=== PATIENT | female | born 1990 | race Caucasian/White ===

== ENCOUNTER → 2017-02-21 | Outpatient (CLI) | payer OTHER ==
[~2017-02-21] MED LIST: FERR1TAB61 PO; MTR600X PO; OXYC-57 PO; SENNTAB23 PO
[2017-02-21 09:49] LABS: HEMATOCRIT 28.8 % (37-47)
[2017-02-21 10:17] LABS: GTGD 50 Grams
== END | disposition home or self-care (01) ==
LOC: C.LAB1850 08:48
PROVIDERS: ATTEND Obstetrics & Gynecology
DX: Z34.03 Encounter for supervision of normal first pregnancy, third trimester (principal)

== ENCOUNTER → 2017-02-21 | Outpatient (CLI) | payer OTHER ==
[2017-02-21 18:16] LABS: URINE APPEARANCE CLEAR (CLEAR); URINE BILIRUBIN NEG (NEG); URINE COLOR YELLOW; URINE EPITHELIAL CELL AUTO >30 /lpf (0-5); URINE NITRITE NEG (NEG); URINE SPECIFIC GRAVITY 1.013 (1.000-1.030); UROBILINOGEN NEG (NEG)
[2017-02-21 18:18] LABS: MANUAL MICROSCOPIC REQUIRED? NO; REVIEW REQ? NO
== END | disposition home or self-care (01) ==
LOC: C.LABSPEC 17:46
PROVIDERS: ATTEND Obstetrics & Gynecology
DX: Z34.03 Encounter for supervision of normal first pregnancy, third trimester (principal)

== ENCOUNTER → 2017-04-13 | Outpatient (CLI) | payer OTHER | END | disposition home or self-care (01) | LOC: C.LABSPEC 17:55 | PROVIDERS: ATTEND Obstetrics & Gynecology | DX: Z34.03 Encounter for supervision of normal first pregnancy, third trimester (principal) ==

== ENCOUNTER → 2017-04-14 | Outpatient (CLI) | payer OTHER ==
[2017-04-14 16:19] LABS: PATIENT HEIGHT 170.2 cm
[2017-04-14 17:45] LABS: URINE TOTAL PROTEIN 7.8 mg/dl (0-11.9)
[2017-04-14 19:01] LABS: CREATININE 0.54 mg/dl (0.6-1.2); URINE TOTAL PROTEIN CALC 210.6 mg/24 hr (0-149.1)
== END | disposition home or self-care (01) ==
LOC: C.LAB1850 15:55
PROVIDERS: ATTEND Obstetrics & Gynecology
DX: O12.13 Gestational proteinuria, third trimester (principal); Z3A.00 Weeks of gestation of pregnancy not specified

== ENCOUNTER 2017-05-05 05:43 | Inpatient (IN) | payer OTHER ==
--- NOTE | 2017-05-04 11:24 | HISTORY & PHYSICAL EXAMINATION ---
DATE OF ADMISSION: 05/05/2017 She is scheduled for on 05/05/2017. HISTORY OF PRESENT ILLNESS: Lo is . This has been an uncomplicated . She has been mildly anemic with a hemoglobin of 9.8 in the early third trimester. Her testing has been normal. It should be noted she had gestational proteinuria in the third trimester, but count was less than 300 mg in 24 hours. MEDICATIONS: Occasional Ventolin puffer, iron supplement, prenatals. DRUG ALLERGIES: None. PAST HISTORY: This is her first . PAST MEDICAL HISTORY: She has a history of ADHD, adjustment disorder. Past history of mild cervical dysplasia. PAST SURGICAL HISTORY: No major surgeries. SOCIAL HISTORY: Nonsmoker, nondrinker. FAMILY HISTORY: Noncontributory. REVIEW OF SYSTEMS: Negative. PHYSICAL EXAMINATION: VITAL SIGNS: Stable. She is afebrile. Her weight is 178. CHEST EXAMINATION: Clear. CARDIOVASCULAR EXAMINATION: Normal rate and rhythm. No audible murmur. ABDOMINAL EXAMINATION: Gravid. Fundal height 39 cm. heart rate tones 140. IMPRESSION AND PLAN: Lo is wishing a primary section. Throughout the it has been discussed with her that we recommend vaginal delivery in vertex presentations in first babies. She wishes to have , she is worried about the size of the baby and says her preference is to have a . She understands that vaginal delivery is the usual recommended course, but she is choosing a section as the choice for herself. I reviewed the risks of including but not limited to the risks of bleeding, infection, injury to bowel, bladder, ureter, vessels, deep vein thrombosis, pulmonary embolus, hernia. Discussed the risks in comparison to vaginal delivery. After full informed consent, the patient wishes to have a primary elective section at 39 weeks and 1 day. Her due date is 05/11/2017. We will make arrangements for this.
[2017-05-04 13:14] VITALS: BMI 28.0
--- NOTE | 2017-05-04 13:37 | PAT Medication Instructions ---
Service Date May 04, 2017. Current Home Medication List Ferrous Sulfate (Iron), 65 MG PO QAM Sennosides-Docusate Sodium (Stool Softener), 1 TAB PO QAM Medication Instructions For Your Scheduled Surgery - Hold the following medications the morning of surgery: Ferrous Sulfate (Iron), 65 MG PO QAM Sennosides-Docusate Sodium (Stool Softener), 1 TAB PO QAM nothing to eat or drink after midnight If you have any questions please call us at [phone] or [phone] or [phone]
[2017-05-04 14:48] LABS: BASO % 0.1 %; BASO ABS # 0.01 K/uL (0-0.2); COMPLETE YES; EOS % 0.5 %; HEMATOCRIT 30.3 % (37-47); IG% 0.2 %; LYMPH % 16.3 %; LYMPH ABS # 1.35 K/uL (1.2-3.4); MEAN CELL VOLUME 89.1 fL (80-100); MEAN CORPUSCULAR HEMOGLOBIN 29.7 pg (25-34); MEAN CORPUSCULAR HGB CONC 33.3 g/dl (32-36); MEAN PLATELET VOLUME 11.7 fL (7.4-10.4); MONO % 7.6 %; NEUT % 75.3 %; PLATELET COUNT 187 K/uL (130-400); WHITE BLOOD COUNT 8.29 K/uL (4.8-10.8)
[2017-05-04 16:03] LABS: BUN/CREATININE RATIO 12.7 (10-20); CALCIUM 8.6 mg/dl (8.5-10.1); CREATININE 0.62 mg/dl (0.60-1.20); POTASSIUM 3.6 mmol/L (3.5-5.1)
[~2017-05-05] VITALS: Ht 170.2 cm; Wt 83.1 kg
[2017-05-05] VITALS (12 sets, daily range): BP systolic 104–124; BP diastolic 63–82; PULSE 54–71; TEMP 36.4–36.9; O2SAT 99–100; Ht 170.2 cm; Wt 83.1 kg
[~2017-05-05 05:43] MED LIST changes: -MTR600X PO; -OXYC-57 PO
[2017-05-05] MEDS ORDERED: CEFAZOLIN SOD 2000 MG in DEXTROSE 5% 50ML IV SCH (06:00)
[2017-05-05] MEDS ORDERED: CITRIC ACID/SODIUM CITRATE 15 ML UDC PO ONE (06:30)
[2017-05-05 06:35] LABS: BASO % 0.1 %; BASO ABS # 0.01 K/uL (0-0.2); EOS % 0.5 %; HEMATOCRIT 31.3 % (37-47); IG% 0.5 %; LYMPH % 19.8 %; LYMPH ABS # 1.55 K/uL (1.2-3.4); MEAN CELL VOLUME 88.9 fL (80-100); MEAN PLATELET VOLUME 11.3 fL (7.4-10.4); NEUT % 68.1 %; PLATELET COUNT 192 K/uL (130-400); RED BLOOD COUNT 3.52 M/uL (4.2-5.4); WHITE BLOOD COUNT 7.81 K/uL (4.8-10.8)
[2017-05-05] MEDS: LACTATED RINGER'S 1000ML 1,000 ML IV SCH ×2 (06:41→07:08)
[2017-05-05 06:45] LABS: COMPLETE YES; MEAN CORPUSCULAR HGB CONC 32.6 g/dl (32-36)
--- NOTE | 2017-05-05 07:05 | History & Physical Bridge Note ---
H&P Re-Evaluation Bridge Note: I have examined the patient, reviewed the History & Physical and in the interval since the performance of the History & Physical I have noted the following changes of clinical significance: No changes noted Still wishes to proceed with primary elective C/S. TIMMY
[2017-05-05] MEDS ORDERED: MoRPHine SULFATE PF 1 MG/ML 10 ML AMP/VIAL ONE (07:06)
[2017-05-05] MEDS ORDERED: METOCLOPRAMIDE HCL INJ 5 MG/ML 2 ML VIAL ONE (08:24)
[2017-05-05] MEDS ORDERED: OXYTOCIN INJ 10 UNITS/ML VIAL ONE (08:24)
[2017-05-05] MEDS ORDERED: EpHEDrine SULFATE INJ 50 MG/ML AMP ONE (08:24)
[2017-05-05] MEDS ORDERED: ONDANSETRON INJ 2 MG/ML 2 ML VIAL ONE (08:24)
[2017-05-05] MEDS ORDERED: MAGNESIUM HYDROXIDE SUSP 30 ML UDC PO PRN (08:30)
[2017-05-05] MEDS ORDERED: LACTATED RINGER'S 1000ML 500 ML IV PRN (08:39)
[2017-05-05] MEDS ORDERED: NALOXONE HCL INJ 1 MG in SODIUM CHLORIDE 0.9% 1000ML 1,000 ML IV PRN ×4 (08:39)
[2017-05-05] MEDS ORDERED: SODIUM CHLORIDE 0.9% 1000ML 1,000 ML IV PRN (08:39)
[2017-05-05] MEDS ORDERED: NALOXONE HCL INJ 0.08 MG in SYRINGE 1.8 ML IV PRN (08:39)
--- NOTE | 2017-05-05 08:40 | [facility] Post Operative Brief Note ---
Immediate Operative Summary Operative Date May 05, 2017. Pre-Operative Diagnosis 39 WEEKS GESTATION FOR ELECTIVE PRIMARY CAESAREAN SECTION Post-Operative Diagnosis SAME Procedure(s) Performed PRIMARY CAESAREAN SECTION DELIVERY FOR LIVE FEMALE INFANT AT [address] Hauser Information Technology Coordinator Surgeon(s) Dr. Rubio Estimated Blood Loss 600 EBL Findings Normal pelvic anatomy Specimens PLACENTA CORD BLOOD PORTION OF CORD FOR ARTERIAL AND VENOUS CORD BLOOD GASES ARTERIAL AND VENOUS CORD BLOOD GASES Drains Damon Anesthesia Spinal Complication(s) None Disposition L&D
[2017-05-05] MEDS ORDERED: KETOROLAC TROMETHAMINE 30 MG/ML VIAL IV. PRN (08:45)
[2017-05-05] MEDS ORDERED: PROMETHAZINE HCL INJ 12.5 MG in SODIUM CHLORIDE 0.9% 50ML 50 ML IV PRN (08:45)
[2017-05-05] MEDS ORDERED: ATROPINE SULFATE 0.1 MG/ML 5ML SYR IV PRN (08:45)
[2017-05-05] MEDS ORDERED: MEPERIDINE HCL 25 MG/ML CARP IV PRN ×2 (08:45)
[2017-05-05] MEDS ORDERED: NALOXONE HCL 0.4 MG/1 ML VIAL/CARP IV PRN (08:45)
[2017-05-05] MEDS ORDERED: DiphenhydrAMINE HCL 50 MG/ML VIAL IV PRN (08:45)
[2017-05-05] MEDS ORDERED: MoRPHine SULFATE PF 1 MG/ML 10 ML AMP/VIAL EPI PRN (08:45)
[2017-05-05] MEDS ORDERED: NALBUPHINE HCL INJ 10 MG/ML AMP IV PRN (08:45)
[2017-05-05] MEDS ORDERED: NO NARCOTICS OR SEDATIVES SCH (08:45)
[2017-05-05] MEDS ORDERED: PHENYLEPHRINE 100MCG/ML 5ML SYR IV PRN (08:45)
[2017-05-05] MEDS ORDERED: ONDANSETRON INJ 2 MG/ML 2 ML VIAL IV PRN ×2 (08:45)
[2017-05-05] MEDS ORDERED: EpHEDrine SULFATE INJ 50 MG/ML AMP IV PRN ×2 (08:45)
[2017-05-05] MEDS ORDERED: PROMETHAZINE HCL INJ 6.25 MG in SODIUM CHLORIDE 0.9% 50ML 50 ML IV PRN (08:45)
--- NOTE | 2017-05-05 09:22 | OPERATIVE REPORT ---
DATE OF OPERATION: 05/05/2017 PREOPERATIVE DIAGNOSIS: 39 weeks gestation for elective primary section. POSTOPERATIVE DIAGNOSIS: Same. PROCEDURE: Primary section, low transverse. SURGEON: Dr. Hauser. SENIOR ACCOUNTING ASSOCIATE: Carson Marrero PA-C. ESTIMATED BLOOD LOSS: 600 mL. FINDINGS: Normal pelvic anatomy. SPECIMENS: Placenta and cord blood. DRAINS: Damon catheter. ANESTHETIC: Spinal. COMPLICATIONS: None. DISPOSITION: Labor and delivery. Lo was given a spinal anesthetic. Damon catheter placed by nursing. Prepped and draped in supine position with a leftward tilt. Skin incision was tested with pickups with teeth and found to be adequate. Time-out performed and 2 grams Ancef given preoperatively. Scalpel was used to make a Pfannenstiel incision in the skin cutting down to subcutaneous fat and into the fascia. Fascia was then cut laterally with curved Mayos and then released from the rectus muscles superiorly and inferiorly with curved Mayos. Rectus muscle split. Peritoneal cavity entered in a superior location and then opening expanded to allow exposure. Bladder retractor placed. Bladder flap developed with Metzenbaums and then bladder retractor repositioned. Scalpel used to make a low transverse incision on the uterus. Entry into the uterus was actually performed mainly with the finger and then opening extended with the stamping machine operator's fingers in the usual fashion. Fluid was clear. Baby in vertex position. Baby was delivered by gentle flexion of the head and then pressure on the abdomen without difficulty. Mouth and then nares were suctioned at delivery of the head and then gentle traction used to deliver the baby. No nuchal cord. Live vigorous female . Cord clamped and cut. Cord gases obtained. Cord blood obtained. Baby handed to pediatrics, Dr. Chiu in attendance. Placenta was removed. Uterus was exteriorized and then we used a moist lap to ensure all placental material was removed. Pitocin started by anesthesia. Uterus tone improved and hemostasis improved. Uterus closed in the usual fashion, running 0 Monocryl locked and second reinforcing 0 Monocryl nonlocked. At this stage, hemostasis was excellent. After generous irrigation and suction of the cul-de-sac and bladder flap regions, uterus was placed back in the peritoneal cavity. On inspection, hemostasis was excellent. Hemostasis was checked in the subfascial area as well was excellent. Rectus muscles reapproximated with 0 Monocryl. Fascia closed with 0 Vicryl. Subcutaneous fat irrigated and closed with 2-0 Vicryl and skin closed with 4-0 subcuticular Monocryl and Steri-Strips. Sponge and instruments counts correct and urine was clear at the end of procedure. I attest to the content of the Intraoperative Record and any orders documented therein. Any exception s are noted below.
[2017-05-05] MEDS: KETOROLAC TROMETHAMINE 30 MG/ML VIAL IV. PRN ×2 (10:45→23:32)
[2017-05-05] MEDS: SIMETHICONE 80 MG CHEW PO SCH ×4 (10:47→21:02)
[2017-05-05] MEDS ORDERED: LACTATED RINGER'S 1000ML 1,000 ML IV SCH (11:13)
[2017-05-05] MEDS: OXYTOCIN INJ 20 UNITS in LACTATED RINGER'S 1000ML 1,000 ML IV SCH ×2 (11:40→21:01)
--- NOTE | 2017-05-05 15:09 | Anesthesiology Progress Note ---
Anesthesia Post Op Note Date & Time May 05, 2017 at 15:09 Vital Signs Pain Intensity: 2.0 Vital Signs Past 12 Hours Date Time Temp Pulse Resp B/P (MAP) Pulse Ox O2 Delivery O2 Flow Rate FiO2 05/05/17 15:00 20 100 05/05/17 14:00 20 100 05/05/17 14:00 100 Room Air 05/05/17 14:00 36.4 54 20 121/77 (92) 100 Room Air 05/05/17 14:00 100 Room Air Notes Mental Status: alert / awake / arousable, participated in evaluation Pt Amnestic to Procedure: Yes Nausea / Vomiting: adequately controlled Pain: adequately controlled Airway Patency, RR, SpO2: stable & adequate BP & HR: stable & adequate Hydration State: stable & adequate Anesthetic Complications: no major complications apparent
[2017-05-05] MEDS: DOCUSATE SODIUM 100 MG CAP PO SCH (21:02)
[2017-05-06] MEDS ORDERED: DC INTRASPINAL MORPHINE SCH
[2017-05-06] MEDS ORDERED: PROMETHAZINE HCL INJ 25 MG in SODIUM CHLORIDE 0.9% 50ML 50 ML IV PRN (00:01)
[2017-05-06] MEDS ORDERED: DiphenhydrAMINE HCL 50 MG/ML VIAL IV PRN (00:01)
[2017-05-06] MEDS ORDERED: OXYCODONE/ACETAMINOPHEN 5-325 TAB PO PRN (00:01)
[2017-05-06] MEDS ORDERED: KETOROLAC TROMETHAMINE 30 MG/ML VIAL IV. PRN (00:01)
[2017-05-06] MEDS ORDERED: ONDANSETRON INJ 2 MG/ML 2 ML VIAL IV PRN (00:01)
[2017-05-06 04:10] VITALS: BP 114/80; PULSE 96; TEMP 36.8; O2SAT 99
[2017-05-06 06:32] LABS: BASO % 0.1 %; BASO ABS # 0.01 K/uL (0-0.2); EOS % 0.7 %; HEMATOCRIT 27.3 % (37-47); IG% 0.4 %; LYMPH % 12.7 %; LYMPH ABS # 0.89 K/uL (1.2-3.4); MEAN CELL VOLUME 89.8 fL (80-100); MEAN CORPUSCULAR HEMOGLOBIN 29.3 pg (25-34); MEAN CORPUSCULAR HGB CONC 32.6 g/dl (32-36); MONO % 7.4 %; NEUT % 78.7 %; PLATELET COUNT 139 K/uL (130-400); RED BLOOD COUNT 3.04 M/uL (4.2-5.4); WHITE BLOOD COUNT 7.01 K/uL (4.8-10.8)
[2017-05-06 07:03] LABS: COMPLETE YES
--- NOTE | 2017-05-06 07:15 | Progress Note ---
Subjective May 06, 2017. Subjective conversation w/ patient, physical exam Ambulation: ambulating normally Voiding: no voiding problems Passing Gas: No Diet Tolerance: Clear Liquids Lochia: Small Feeding Type: Breast Feeding Pain: sore when got up to urinate Objective Vital Signs Date Time Temp Pulse Resp B/P (MAP) Pulse Ox O2 Delivery O2 Flow Rate FiO2 05/06/17 04:10 36.8 96 18 114/80 (91) 99 Room Air 05/05/17 23:45 36.9 60 18 104/63 (77) 99 Room Air 05/05/17 23:45 18 99 05/05/17 23:45 99 Room Air 05/05/17 22:00 16 99 05/05/17 21:00 16 99 05/05/17 20:00 36.8 71 16 124/82 (96) 99 Room Air 05/05/17 20:00 16 99 05/05/17 19:00 16 99 05/05/17 18:00 16 100 05/05/17 17:00 16 100 05/05/17 16:00 20 100 05/05/17 15:52 36.4 59 20 113/76 (88) 100 Room Air 05/05/17 15:30 20 100 05/05/17 15:30 100 Room Air 05/05/17 15:00 20 100 05/05/17 14:00 20 100 05/05/17 14:00 100 Room Air 05/05/17 14:00 36.4 54 20 121/77 (92) 100 Room Air 05/05/17 14:00 100 Room Air Physical Exam General Appearance: WELL-APPEARING, WD/WN, NO APPARENT DISTRESS Respiratory/Chest: lungs clear Cardiovascular: regular rate, rhythm Abdomen: non tender, soft Fundus: Firm, Relation to Umbilicus (at u) Incision Description: Clean, Dry & Intact Extremities: non-tender Laboratory Results Last 24 Hours Test 05/06/17 06:06 White Blood Count 7.01 K/uL Red Blood Count 3.04 M/uL Hemoglobin 8.9 g/dL Hematocrit 27.3 % Mean Corpuscular Volume 89.8 fL Mean Corpuscular Hemoglobin 29.3 pg Mean Corpuscular Hemoglobin Concent 32.6 g/dl Platelet Count 139 K/uL Mean Platelet Volume 11.0 fL Neutrophils (%) (Auto) 78.7 % Lymphocytes (%) (Auto) 12.7 % Monocytes (%) (Auto) 7.4 % Eosinophils (%) (Auto) 0.7 % Basophils (%) (Auto) 0.1 % Neutrophils # (Auto) 5.51 K/uL Lymphocytes # (Auto) 0.89 K/uL Monocytes # (Auto) 0.52 K/uL Eosinophils # (Auto) 0.05 K/uL Basophils # (Auto) 0.01 K/uL RDW Standard Deviation 46.9 fL RDW Coefficient of Variation 14.3 % Immature Granulocyte % (Auto) 0.4 % Immature Granulocyte # (Auto) 0.03 K/uL Assessment and Plan Post-Op Day#: 1 Continue Routine Care: stable, routine care. adv diet to crackers, use po pain meds and walking to see if can pass gas. +bs. no distention. voided x 1.
[2017-05-06 07:29] VITALS: BP 111/75; PULSE 66; TEMP 36.9; O2SAT 99
[2017-05-06] MEDS: SIMETHICONE 80 MG CHEW PO SCH ×4 (08:02→19:36)
[2017-05-06] MEDS: DOCUSATE SODIUM 100 MG CAP PO SCH ×2 (08:02→19:36)
[2017-05-06 11:25] VITALS: BP 111/74; PULSE 79; TEMP 37
[2017-05-06] MEDS: IBUPROFEN 600 MG TAB PO PRN ×3 (11:57→20:14)
[2017-05-06 16:45] VITALS: BP 122/84; PULSE 90; TEMP 37
[2017-05-06] MEDS: OXYCODONE/ACETAMINOPHEN 5-325 TAB PO PRN (20:57)
[2017-05-06] MEDS ORDERED: BISACODYL 5 MG TABEC PO ONE (22:00)
[2017-05-06 23:40] VITALS: BP 106/72; PULSE 68; TEMP 36.8; O2SAT 99
[2017-05-07] MEDS: IBUPROFEN 600 MG TAB PO PRN ×4 (05:35→20:03)
[2017-05-07 06:23] LABS: HEMATOCRIT 27.8 % (37-47)
[2017-05-07] MEDS ORDERED: BISACODYL 10 MG SUPP PR PRN (07:00)
[2017-05-07] MEDS: DOCUSATE SODIUM 100 MG CAP PO SCH ×2 (08:07→20:05)
[2017-05-07] MEDS: SIMETHICONE 80 MG CHEW PO SCH ×4 (08:07→20:05)
--- NOTE | 2017-05-07 08:26 | Progress Note ---
Subjective May 07, 2017. Subjective conversation w/ patient, chart review, review of studies Ambulation: ambulating normally Voiding: no voiding problems Diet Tolerance: Regular Diet Lochia: Moderate Feeding Type: Breast Feeding Objective Vital Signs Date Time Temp Pulse Resp B/P (MAP) Pulse Ox O2 Delivery O2 Flow Rate FiO2 05/06/17 23:40 36.8 68 18 106/72 (83) 99 Room Air 05/06/17 23:40 99 Room Air 05/06/17 16:45 Room Air 05/06/17 16:45 37.0 90 20 122/84 (97) Room Air 05/06/17 11:25 37.0 79 16 111/74 (86) Room Air Physical Exam General Appearance: WELL-APPEARING Abdomen: normal bowel sounds, non tender Fundus: Firm Extremities: no calf tenderness Laboratory Results Last 24 Hours Test 05/07/17 06:05 Hemoglobin 9.1 g/dL Hematocrit 27.8 % Assessment and Plan Post-Op Day#: 2 Continue Routine Care: KINGS WARNER
[2017-05-07 08:30] VITALS: BP 110/63; PULSE 75; TEMP 36.8
[2017-05-07] MEDS: OXYCODONE/ACETAMINOPHEN 5-325 TAB PO PRN ×3 (09:12→20:04)
[2017-05-07 15:00] VITALS: BP 109/56; PULSE 118; TEMP 36.7
[2017-05-07 23:25] VITALS: BP 115/73; PULSE 59; TEMP 36.8; O2SAT 99
[2017-05-08] MEDS ORDERED: MTR600X PO (06:01)
[2017-05-08] MEDS ORDERED: OXYC-57 PO (06:01)
--- NOTE | 2017-05-08 06:02 | Discharge Instructions ---
Discharge Instructions Date of Service May 08, 2017. Admission Reason for Admission: [id number] For Delivery W/O Indication Discharge Discharge Diagnosis / Problem: C/S Discharge Goals Goal(s): Routine recovery after Activity Recommendations Activity Limitations: per Instructions/Follow-up section . Instructions / Follow-Up Instructions / Follow-Up ACTIVITY RECOMMENDATIONS: * Gradual return to full activity over the next 2-3 weeks. * No lifting - nothing heavier than baby over the next 2-3 weeks. * Do not engage in vigorous exercise, sexual activity or sports until cleared by your physician. * Do not drive or operate any motorized equipment until cleared by your physician. * You may shower/bathe daily. MEDICATIONS: For discomfort or pain, you may use Acetaminophen (Tylenol), Ibuprofen (Advil), or Naproxen (Aleve) following the package directions. For constipation you may use Colace following the package directions. BREAST CARE: If you are not breast feeding: * Wear a supportive bra 24 hours a day for one to two weeks. * Avoid stimulating your breasts and nipples as much as possible during the first few weeks after delivery. * When taking a shower, have the warm water hit your back, not breasts. * When your breasts feel full, apply ice packs. Usually three to four times a day helps ease the discomfort. * Take a mild pain medication (Tylenol / Motrin) when you are uncomfortable. If breast feeding: * Use breast milk to lubricate nipples. Lansinoh cream may be used for sore nipples. You do not need to remove cream prior to breast feeding. If using a different brand of cream, check the label for directions regarding removal of cream prior to nursing. * Wear a supportive bra. * If having problems with breasts or breast feeding, call a sr solutions consultant or your health care provider. SPECIAL CARE INSTRUCTIONS: When you are discharged from the hospital, it is important for you to follow the instructions listed below: * During the first week at home, you should be able to care for yourself and your baby. In addition, the usual light household activities are encouraged. * Limit your activities to the way you feel. Do not try to clean the house or move furniture. Be sensible. * If you actively engage in sports and have done so up until the time of your delivery, you may resume these activities as soon as you feel able. This may take up to one month or even longer. Use good judgment. * Continue to take your vitamins for at least six weeks after the of your baby. * Your diet need not be limited unless you were on a special diet before your delivery. Breast-feeding mothers need around 2500 calories per day and at least 64-80 ounces of fluid per day (8 to 10 glasses). * You should eat foods from the four major food groups. Crash diets or fad diets are to be avoided. Eating lean meats, fresh fruits and vegetables, low-fat dairy products, high fiber foods and a regular exercise program, will help you get back to your pre- weight without putting your health at risk. * Constipation is sometimes a problem after delivery. Take a mild laxative as needed. If breast feeding, Milk of Magnesia is acceptable to use. You may use a suppository or Fleets enema. * A daily shower or tub bath is suggested. Wash incision daily with warm soapy water and pat dry. It doesn't need to be covered unless drainage is present. * A bloody vaginal discharge will usually continue until around four weeks . A small amount of bleeding may continue for as long as six weeks. Vaginal discharge changes from the bright red bleeding after delivery to pink then brownish and finally yellowish-pink before becoming white and disappearing. * Bleeding may increase with activity. Your first period may come in 4-8 weeks. If you are breast feeding, your period may be delayed even longer. * [place] (sex) can begin whenever both you and your partner feel comfortable and do not have any form of genital infection. It is recommended that you wait at least six weeks for internal and external healing to occur. If you have questions, please talk to your health care practitioner. A condom should be used to prevent infection and . * Foreplay, gentle intercourse and lubrication is very important the first several times to prevent pain. A water-based lubricant such as K-Y jelly or Astroglide may be used. * If you have RH negative blood and your baby is RH positive, you will receive RHOGAM by injection prior to discharge. The nurse will give you a card to keep with you that has the date and place that you received RHOGAM after delivery. * During your care, you had a Rubella screen done to check for the presence of rubella antibodies in your blood. If your test was negative, you will receive a Rubella vaccine prior to discharge. This vaccine may cause a fever, soreness at the injection site and flu-like symptoms. If these symptoms persist, notify your health care practitioner. is not advised for one month after a Rubella vaccine. * Verbalizes understanding of car seat law as reviewed with patient nursing. * Car Seat hand-out given and reviewed with patient by nursing. * Shaken baby information reviewed with patient by nursing. Call you doctor if: * Heavy bleeding (saturating several pads an hour) or passing clots the size of your fist. * A fever >101 degrees F (38.3 degrees C) on two occasions four hours apart and /or chills. * Unusual pain in the pelvic or vaginal areas. * Call the doctor for any increased redness, drainage or swelling around the incision and any pain unrelieved by prescribed pain medication. * "Baby Blues" lasting longer than two weeks. If you have any questions or concerns, call your health care practitioner at . FOLLOW UP VISIT: * Please call the office at to schedule a 6 week examination. It is important you keep this appointment. It is important for you to make arrangements for either yearly or twice yearly check-ups thereafter. Current Hospital Diet Patient's current hospital diet: Regular Diet Discharge Diet Recommended Diet: Regular OB Diet Procedures Procedures Performed: PRIMARY CAESAREAN SECTION DELIVERY FOR LIVE FEMALE INFANT AT 0757 Pending Studies Studies pending at discharge: no Medical Emergencies . Who to Call and When: Medical Emergencies: If at any time you feel your situation is an emergency, please call [phone] immediately. . Non-Emergent Contact Non-Emergency issues call your: [facility] . . "Provider Documentation" section prepared by Ranulfo Hauser. . VTE Core Measure Inpt VTE Proph given/why not?: Ethan Newell, SCD's
--- NOTE | 2017-05-08 06:23 | Progress Note ---
Subjective May 08, 2017. Subjective conversation w/ patient, physical exam, chart review, lab review Ambulation: ambulating normally Voiding: no voiding problems Diet Tolerance: Regular Diet Lochia: Small Feeding Type: Breast Feeding Objective Vital Signs Date Time Temp Pulse Resp B/P (MAP) Pulse Ox O2 Delivery O2 Flow Rate FiO2 05/07/17 23:25 Room Air 05/07/17 23:25 36.8 59 18 115/73 (87) 99 Room Air 05/07/17 15:00 Room Air 05/07/17 15:00 36.7 118 20 109/56 (73) Room Air 05/07/17 08:30 36.8 75 20 110/63 (79) Physical Exam General Appearance: WELL-APPEARING Abdomen: non tender Fundus: Firm Incision Description: Clean, Dry & Intact Extremities: no calf tenderness Assessment and Plan Post-Op Day#: 3 Continue Routine Care: home
[2017-05-08] MEDS: IBUPROFEN 600 MG TAB PO PRN ×2 (06:42→10:52)
[2017-05-08] MEDS: OXYCODONE/ACETAMINOPHEN 5-325 TAB PO PRN ×2 (06:43→10:53)
[2017-05-08 07:26] VITALS: BP 116/78; PULSE 65; TEMP 37; O2SAT 99
[2017-05-08] MEDS: SIMETHICONE 80 MG CHEW PO SCH ×2 (09:30→10:53)
[2017-05-08] MEDS: DOCUSATE SODIUM 100 MG CAP PO SCH (09:30)
--- NOTE | 2017-05-08 10:24 | DISCHARGE SUMMARY ---
Maddy had a section on 05/05/2017. Operative note has been dictated. Course in hospital uncomplicated. By day 3, she met discharge criteria. SUBJECTIVE: The patient was feeling well, ambulating well, tolerating oral diet, passing flatus, minimal bleeding, no extremity pain. PHYSICAL EXAMINATION: VITAL SIGNS: Stable. She is afebrile. ABDOMEN: Benign, soft, nontender. Uterus firm. Incision clean, dry and intact. EXTREMITIES: Negative. IMPRESSION AND PLAN: Postop day 3 from , hemoglobin 9.1 advised iron as an outpatient, Percocet and Motrin and given discharge instructions. Told to follow up in the office.
[2017-05-08 10:30] VITALS: BP_DIAS 78; PULSE 65; TEMP 37
== END 2017-05-08 11:34 | disposition home or self-care (01) | DRG 766 ==
LOC: C.LD 05:43 → EDSTATUS 09:30 → C.OBG 14:02
PROVIDERS: ADMIT Obstetrics & Gynecology; ATTEND Obstetrics & Gynecology
PROC: 10D00Z1 Extraction of Products of Conception, Low, Open Approach (ICD-10-PCS; principal; 2017-05-05 07:30)
DX: O12.14 Gestational proteinuria, complicating childbirth (principal); O99.344 Other mental disorders complicating childbirth; F90.9 Attention-deficit hyperactivity disorder, unspecified type; Z3A.39 39 weeks gestation of pregnancy; Z37.0 Single live birth

== ENCOUNTER 2019-03-22 05:46 | Inpatient (IN) ==
--- NOTE | 2019-03-15 13:46 | History & Physical Report ---
Date of Service March 15, 2019 Assessment & Plan (1) Previous delivery affecting : Planned section and discussed risks including but not limited to the risks of infection injury to bowel bladder ureter deep vein thrombosis pulmonary embolus harm to fetus discussed failure rates of tubal History of Present Illness Repeat C/S and tubal ligation. will be 39 weeks this Monday. Uncomplicated . Does not plan more children and wishes tubal ligation Normal testing, U/S Primary Care Provider: NO PCP Allergies Allergy/AdvReac Type Severity Reaction Status Date / Time No Known Allergies Allergy Verified 03/14/19 11:30 Home Medications Home Medications Medication Instructions Recorded Confirmed Type No Known Home Medications 03/14/19 03/14/19 History Past Med/Surg History Medical History Anxiety Asthma A CHILD (NO INHALER CURRENTLY) Depression GERD (gastroesophageal reflux disease) Restless leg syndrome DURING PREGNANCIES Surgical History History of section X 1 History of myringotomy Nausea and vomiting after administration of anesthetic agent Family History Aunt Family history of diabetes mellitus Grandmother (Paternal) Family hx of colon cancer Social History Preferred Language: [place] Communication Ability: Effective Clinical Project Leader Required: No Beliefs That Will Affect Care: None Current Living Situation: Significant Other Other Information That Helps Us Care for You: No Feels Safe at Home: Yes Safety Concerns: Feels Safe At This Time Smoking Status: Former smoker Do You Dip or Chew Tobacco: No Smoking End Date: 11/2016 Second Hand Exposure: Yes (OCCAS.) Tobacco Cessation Education Requested by Patient: No Hx Alcohol Use: No Hx Substance Use: No Physical Exam Constitutional: WD/WN, vitals as above Respiratory: normal respiratory effort, lungs clear to auscultation Cardiovascular: RRR, no murmur, no edema Genitourinary: OB Exam Abdomen: + fundal height (38), + heart tones (134) and + vertex
--- NOTE | 2019-03-15 14:45 | Anesthesiology Consultation ---
Date of Service March 15, 2019 Assessment & Plan (1) Encounter for pre-operative examination: Chart Review Chart Review: Acceptable Risk for Surgery and Patient seen in Pre Admission Testing Consults Requested none Teaching & Discussion Pre-Anesthesia Teaching/Discussion Notes: Instructed NPO after midnight before surgery, except medications with 15 cc of water. Medication instructions provided according to the PAT guidelines. History Surgery Operation Date: 03/22/19 08:50 Proposed Procedures p Section; - Sofi Hauser MD, FACOG s Post Tubal Ligation - Sofi Hauser MD, FACOG Height/Weight Height: 5 ft 7.5 in Weight: 87.8 kg Allergies Allergy/AdvReac Type Severity Reaction Status Date / Time No Known Allergies Allergy Verified 03/14/19 11:30 Medications Home Medications Medication Instructions Recorded Confirmed Last Taken No Known Home Medications 03/14/19 03/14/19 Unknown Past Medical History Medical History Anxiety Asthma A CHILD (NO INHALER CURRENTLY) Depression GERD (gastroesophageal reflux disease) Restless leg syndrome DURING PREGNANCIES Exercise / Class Metabolic Activity II 4-5 Yardwork/Stairs/Walk up hill (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 Able to climb FOS. Mild SOB with . Normally no SOB or CP. ) Past Family History Family History Aunt Family history of diabetes mellitus Grandmother (Paternal) Family hx of colon cancer Past Surgical History Surgical History History of section X 1 History of myringotomy Past Anesthesia History No Hx of Anesthesia Complications and No Family Hx of Anesthesia Complications History of PONV History of PONV (Does have history of PONV with . ) and Hx of Motion Sickness Social History Smoking Status: Former smoker Smoking cigarettes per day: 1/2 - 1 ppd x 15 years Do You Dip or Chew Tobacco: No Smoking End Date: 11/2016 Hx Alcohol Use: No Hx Substance Use: No substance use type: does not use Review of Systems Patient denies chest pain, shortness of breath, cough, wheezing, palpitations. +Mild SOB with stairs at end of this +Joint Pain (Chronic Back Pain since last ) +Acid reflux (diet controlled) Physical Exam Vital Signs BP: 116/73 P: 80 R: 14 T: 98.3 SPO2: 98% on RA ENMT Thyromental Distance: > or= 3.5 Finger Breadths (3.5) Mallampati Class: I Neck normal visual inspection; neck extension not limited Respiratory normal respiratory effort Auscultation: lungs clear to auscultation bilaterally Cardiovascular Rate/Rhythm: regular rate and regular rhythm Heart Sounds: no murmur Neurologic moves all extremities Psychiatric Orientation: alert and oriented x 3
[~2019-03-22 05:46] MED LIST changes: -FERR1TAB61 PO; +MISSING PHYSICIAN SIGNATURE ON ORDER SCH; -SENNTAB23 PO
--- OUTSIDE RECORDS SUMMARY | 2019-03-22 05:49 | External Medical Summary | Continuity of Care Document ---
:1990 Author Name Babs Strong, Provider Address Unavailable Unavailable , Care Team Providers Name Role Phone Sofi Hauser M.D. Unavailable [email or web address] Unavailable Unavailable Unavailable Unavailable Unavailable Problems Cervicalgia (723.1) (M54.2) Cervical radiculopathy at C8 (723.4) (M54.12) History of Mild cervical dysplasia (622.11) (N87.0) Status: Resolved Asthma (493.90) (J45.909) Adjustment disorder with anxiety (309.24) (F43.22) ADHD (attention deficit hyperactivity disorder), combi yosef type (314.01) (F90.2) Atypical chest pain (786.59) (R07.89) Need for rhogam due to Rh negative mother (V07.2) (Z29.13) Supervision of normal intrauterine pregn alis in multigravida in third trimester (V22.1) (Z34.83) History of (V45.89) (Z98.891) Allergies and Adverse Reactions No Known Drug Allergies (Allergy) Medications No Reported Medications Refills: 0 Procedures History of Colposcopy Cervix With Biopsy(S) With Endocervica l Status: Completed Curettage History of section Status: Comp leted Immunizations Hepatitis B On: 29-May-1998 Hepatitis B On: 02-Jul-1998 Td On: 26-Feb-1999 Hepatitis B On: 13-Jun-1999 HPV (Gardasil) On: 26-May-2008 HPV (Gardasil) On: 02-Oct-2008 Tdap (Adacel) On: 07-Apr-2017 12:07 Lot #: [id number], SANOFI PASTEUR Fluzone Quadrivalent 0.5 ML Intramuscular Suspension P refilled Syringe On: 03-Jan-2019 10:11 Lot #: [id number], SANOFI PASTEUR Family History Father Family history of Meningioma Status: Active Family history of depression (V17.0) (Z81.8) Status: Active Mother FHx: hypercholesterolemia (V18.19) (Z83.42) Status: Active Family history of depression (V17.0) (Z81.8) Status: Active Grandfather Family history of cardiac disorder (V17.49) (Z82.49) Status: Active uncle Family history of cardiac disorder (V17.49) (Z82.49) Status: Active aunt Family history of diabetes mellitus (V18.0) (Z83.3) Status: Active Family history of lupus erythematosus (V19.8) (Z84.0) Status : Active Grandmother Family history of cerebrovascular accident (CVA) (V17.1) (Z8 2.3) Status: Active Social History - Smoking Status Former smoker Plan of Treatment Planned Observations Planned Goals not documented Results Group B Strep/SHRESTHA 28-Feb-2019 0:00 GRP B BETA STREP CULTURE - SHRESTHA ORDERED P ROCEDURE : GRP B Beta Strep Culture -SHRESTHA; Speciment : V aginal/Rectal Source of Specimen: Vaginal/ Rectal Group B St rep Culture : No Group B Strep isolated Vital Signs 15-Mar-2019 13:41 Systolic 116 mm[Hg] Diastolic 70 mm[Hg] Weight 193.2 lb Height 67 in BMI Calculated 30.26 kg/m2 BSA Calculated 1.99 m2 07-Mar-2019 10:08 Systolic 114 mm[Hg] Diastolic 68 mm[Hg] Weight 191.2 lb Height 67 in BMI Calculated 29.95 kg/m2 BSA Calculated 1.98 m2 28-Feb-2019 11:09 Systolic 120 mm[Hg] Diastolic 84 mm[Hg] Weight 190.6 lb Height 67 in BMI Calculated 29.85 kg/m2 BSA Calculated 1.98 m2 22-Feb-2019 15:26 Systolic 114 mm[Hg] Diastolic 70 mm[Hg] Weight 189.4 lb Height 67 in BMI Calculated 29.66 kg/m2 BSA Calculated 1.98 m2 Encounters Appointment; Sofi Hauser M.D. 15-Mar-2019 13:40 Encounter Diagnosis: Problem not documented Appointment; Sofi Hauser M.D. 07-Mar-2019 10:00 Encounter Diagnosis: Problem not documented Appointment; Naomi Cleaning M.D. 28-Feb-2019 11:10 Encounter Diagnosis: Problem not documented Appointment; Sofi Hauser M.D. 22-Feb-2019 15:20 Encounter Diagnosis: Problem not documented Appointment; Vanda Thakur M.D. 07-Feb-2019 10:50 Encounter Diagnosis: Problem not documented Appointment; Sofi Hauser M.D. 21-Jan-2019 15:20 Encounter Diagnosis: Problem not documented Appointment; Tien Carney M.D. 03-Jan-2019 8:40 Encounter Diagnosis: Problem not documented Appointment; Naomi Cleaning M.D. 10-Dec-2018 10:10 Encounter Diagnosis: Problem not documented Appointment; Vanda Thakur M.D. 09-Nov-2018 14:20 Encounter Diagnosis: Problem not documented Appointment; OBGYN SC2, Ultrasound 09-Nov-2018 13:30 Encounter Diagnosis: Problem not documented Appointment; Sofi Hauser M.D. 18-Oct-2018 15:10 Encounter Diagnosis: Problem not documented Appointment; Sofi Hauser M.D. 14-Sep-2018 16:30 Encounter Diagnosis: Problem not documented Appointment; Sofi Hauser M.D. 15-Aug-2018 15:40 Encounter Diagnosis: Problem not documented Appointment; OB SC1, Procedure Rm 15-Aug-2018 15:40 Encounter Diagnosis: Problem not documented Appointment; OB SC1, Nursing Station 15-Aug-2018 15:00 Encounter Diagnosis: Problem not documented Appointment; Sofi Hauser M.D. 21-Jun-2017 14:00 Encounter Diagnosis: Problem not documented Appointment; Sofi Hauser M.D. 05-May-2017 9:30 Encounter Diagnosis: Problem not documented Appointment; Sofi Hauser M.D. 04-May-2017 8:20 Encounter Diagnosis: Problem not documented Appointment; Matilde Rubio DO 27-Apr-2017 10:20 Encounter Diagnosis: Problem not documented Appointment; Sofi Hauser M.D. 21-Apr-2017 14:10 Encounter Diagnosis: Problem not documented Appointment; OB SC1, Nonstress Test 20-Apr-2017 11:30 Encounter Diagnosis: Problem not documented Appointment; Vanda Thakur M.D. 13-Apr-2017 14:50 Encounter Diagnosis: Problem not documented Appointment; Sofi Hauser M.D. 06-Apr-2017 9:20 Encounter Diagnosis: Problem not documented Appointment; Amada Trinidad M.D. 23-Mar-2017 9:00 Encounter Diagnosis: Problem not documented Appointment; Sofi Hauser M.D. 22-Mar-2019 7:30 Encounter Diagnosis: Problem not documented
[2019-03-22] MEDS ORDERED: CEFAZOLIN 2000MG 2,000 MG/15 ML SYR IV SCH ×2 (06:00)
[2019-03-22] MEDS ORDERED: CITRIC ACID/SODIUM CITRATE 15 ML UDC PO SCH (06:00)
[2019-03-22] MEDS ORDERED: LACTATED RINGER'S 1,000 ML IV SCH ×3 (06:00→06:49)
[2019-03-22 06:07] LABS: Basophils # (auto) 0.02 K/uL (0-0.2); Basophils % (auto) 0.3 %; Eosinophils # (auto) 0.05 K/uL (0-0.5); Eosinophils % (auto) 0.7 %; Hemoglobin 9.8 g/dL (12.0-16.0); Immature Granulocytes # (auto) 0.02 K/uL (0.00-0.02); Immature Granulocytes % (auto) 0.3 %; Lymphocytes # (auto) 2.17 K/uL (1.2-3.4); Lymphocytes % (auto) 30.1 %; Mean Corpuscular Volume 83.1 fL (80-100); Mean Platelet Volume 11.1 fL (7.4-10.4); Monocytes # (auto) 0.63 K/uL (0.11-0.59); Monocytes % (auto) 8.7 %; Neutrophils # (auto) 4.33 K/uL (1.4-6.5); Neutrophils % (auto) 59.9 %; Platelet Count 208 K/uL (130-400); RDW Coefficient of Variation 13.4 % (11.5-14.5); Red Blood Count 3.61 M/uL (4.2-5.4); White Blood Count 7.22 K/uL (4.8-10.8)
[2019-03-22 06:21] LABS: Mean Corpuscular Hgb Conc 32.7 g/dL (32-36)
--- NOTE | 2019-03-22 07:14 | History & Physical Bridge Note ---
Date of Service March 22, 2019 History & Physical Bridge Note I have examined the patient, reviewed the History & Physical and in the interval since the performance of the History & Physical I have noted the following changes of clinical significance: no changes noted
[2019-03-22] MEDS ORDERED: fentaNYL citrate 100 MCG/2 ML VIAL ONE (07:45)
[2019-03-22] MEDS ORDERED: MoRPHine SULFATE PF 1 MG/ML 10 ML AMP/VIAL ONE (07:45)
[2019-03-22] MEDS ORDERED: OXYTOCIN 10 UNITS/ML VIAL ONE (08:37)
[2019-03-22] MEDS ORDERED: KETOROLAC 30 MG/ML VIAL ONE (08:37)
[2019-03-22] MEDS ORDERED: PHENYLEPHRINE 100MCG/ML 5ML SYR ONE (08:37)
[2019-03-22] MEDS ORDERED: ONDANSETRON INJ 2 MG/ML 2 ML VIAL ONE (08:43)
[2019-03-22] MEDS ORDERED: NALOXONE HCL 0.08 MG in SYRINGE 1.8 ML IV PRN (08:44)
[2019-03-22] MEDS ORDERED: LACTATED RINGER'S 500 ML IV PRN (08:44)
[2019-03-22] MEDS ORDERED: NALOXONE HCL 0.4 MG/1 ML VIAL/CARP IV PRN (08:44)
[2019-03-22] MEDS ORDERED: ePHEDrine sulfate 50 MG/ML AMP IV PRN (08:44)
[2019-03-22] MEDS ORDERED: HYDROmorphone INJ 0.5 MG/0.5 ML SYR IV PRN (08:44)
[2019-03-22] MEDS ORDERED: PROMETHAZINE HCL 6.25 MG in SODIUM CHLORIDE 0.9% 50 ML IV PRN (08:44)
[2019-03-22] MEDS ORDERED: MoRPHine SULFATE PF 1 MG/ML 10 ML AMP/VIAL INT SPINAL ONE (08:44)
[2019-03-22] MEDS ORDERED: MEPERIDINE HCL 25 MG/ML CARP IV PRN (08:44)
[2019-03-22] MEDS ORDERED: MoRPHine SULFATE 2 MG/ML CARP IV PRN (08:44)
[2019-03-22] MEDS ORDERED: DiphenhydrAMINE HCL 50 MG/ML VIAL IV PRN (08:44)
[2019-03-22] MEDS ORDERED: NALOXONE HCL 1 MG in SODIUM CHLORIDE 0.9% 1000ML 1,000 ML IV PRN (08:44)
[2019-03-22] MEDS ORDERED: DC INTRASPINAL MORPHINE SCH (08:45)
[2019-03-22] MEDS ORDERED: SODIUM CHLORIDE 0.9% 1000ML 1,000 ML IV SCH (08:45)
[2019-03-22] MEDS ORDERED: NO NARCOTICS OR SEDATIVES SCH (08:45)
--- NOTE | 2019-03-22 08:57 | Operative Report ---
Post Operative Report Pre & Post Diagnosis Operation Date: 03/22/19 07:30 Pre-Op Diagnosis: Previous caesarean section, requests permanent sterilization Post-Op Diagnosis: Previous caesarean section, requests permanent sterilization Procedure Operation Date: 03/22/19 07:30 Actual Procedures p Section, repeat, with delivery of live male child at 0815(Not Applicable) - Sofi Hauser MD, FACOG s with Bilateral Tubal Ligation(Bilateral) - Sofi Hauser MD, FACOG Surgeon Sofi Hauser MD, FACOG Mystery [employer]pper Dr. Yee Estimated Blood Loss 500 Findings Consistent with Post-Op Diagnosis Specimens Fallopian tube segments and cord blood cord gases Description of Procedure Discussed with patient prior to procedure she wishes to proceed with section and tubal ligation patient taken to the operating room given spinal anesthetic Damon catheter placed in her bladder prepped and draped skin tested with pickups teeth and found to be adequate for incision patient had a prior keloid incision made an incision inferior to this Pfannenstiel dissecting down through subtenons fat through the fascia in the midline fascia then dissected laterally with curved Moore scissors fascia then removed superiorly and inferiorly away from the rectus muscles rectus muscle split peritoneal cavity entered in a superior location peritoneal cavity opening enlarged to allow exposure bladder retractor placed Metzenbaums used to dissect away the bladder flap there were no significant adhesions Scalpel used to make a low transverse incision on the uterus entry was done bluntly with a hemostat then uterine incision was expanded in the usual fashion with the hoop coiling machine operator's fingers membranes ruptured clear fluid baby in vertex posit ion baby delivered by flexion of the head and pressure from the hospital medical assistant on the abdomen no difficulties with delivery no excessive force live vigorous male infant cord clamped and cut cord gases obtained cord blood obtained placenta removed uterus exteriorized IV Pitocin started it should be noted IV Ancef was given prior to the procedure We used a moist lap to ensure all placenta removed from the uterus and adnexa were inspected and found to be normal Uterus closed in 2 layers first layer of 0 Monocryl running locked second layer of 0 Monocryl nonlocked after generous irrigation and suction of the cul-de-sac and bladder flap regions then confirm with the patient that she wished to proceed with tubal and she said yes [place] used to grab the isthmic portion of the right tube and then a suture was passed through a nonvascular area of the attachment of the fallopian tube this was tied on both the proximal and distal end of the Pascual and a second tie was then placed as well and then Metzenbaums used to cut a small portion of the tube this was sent to pathology The exact same process continued on the left so with portions of both tubes after generous irrigation suction the uterus was placed back in the peritoneal cavity on inspection hemostasis was excellent to both fallopian tube sites and the uterine incision Retractors removed 0 Vicryl was used to close the muscle layer fascia closed with 0 Vicryl subtendinous fat irrigated and closed with 3-0 Vicryl we then removed the anterior aspect of the keloid with scalpel and analysis to retract and then used a 4 oh septic your Monocryl closure Steri-Strips applied urine was clear at the end of the procedure and sponge and estimate counts correct I attest to the content of the Intraoperative Record and any orders documented therein. Any exceptions are noted below.
[2019-03-22 09:07] LABS: Base Excess Cord Venous Blood -1.2 mEq/L (-7.7-1.9); Cord Venous Blood HCO3 25 mmol/L (18.4-26.8); Cord Venous Blood PCO2 50 mmHg (30.4-57.2); Cord Venous Blood PO2 27 mmHg (14.1-43.3); Cord Venous Blood pH 7.33 (7.20-7.44)
--- NOTE | 2019-03-22 09:42 | Anesthesiology Progress Note ---
Date of Service March 22, 2019 Anesthesia Post Procedure Vital Signs Vital Signs: Temp Pulse Resp BP Pulse Ox 03/22/19 09:39 48 L 99 03/22/19 09:34 48 L 100 03/22/19 09:33 52 L 108/47 L 03/22/19 09:29 49 L 99 03/22/19 09:24 61 99 03/22/19 09:22 53 L 103/64 03/22/19 09:19 55 L 99 03/22/19 09:14 49 L 100 03/22/19 09:12 49 L 105/56 L 03/22/19 09:09 61 100 03/22/19 09:08 56 L 93 03/22/19 09:04 58 L 100 03/22/19 09:01 53 L 108/59 L 03/22/19 05:53 36.6 C 75 18 114/72 03/22/19 05:52 36.6 C 75 18 114/72 Transfer of Care Handoff Completed per policy Notes Mental Status: alert / awake / arousable Nausea / Vomiting: adequately controlled Pain: adequately controlled Airway Patency, RR, SpO2: stable & adequate BP & HR: stable & adequate Hydration State: stable & adequate Neuraxial Anesthesia: was administered and sensory block is resolving Anesthetic Complications: no major complications apparent
[2019-03-22] MEDS: ONDANSETRON INJ 2 MG/ML 2 ML VIAL IV PRN ×2 (10:38→17:42)
[2019-03-22] MEDS: NALBUPHINE HCL INJ 10 MG/ML AMP IV PRN ×2 (11:01→14:19)
[2019-03-22] MEDS ORDERED: SENNA 8.6 MG TAB PO PRN (12:12)
[2019-03-22] MEDS ORDERED: HYDROCORTISONE ACETATE 25 MG SUPP PR PRN (12:12)
[2019-03-22] MEDS ORDERED: MAGNESIUM HYDROXIDE SUSP 30 ML UDC PO PRN (12:12)
[2019-03-22] MEDS ORDERED: BENZOCAINE 20% AER SPR 82.5 GM CAN EXT PRN (12:12)
[2019-03-22] MEDS ORDERED: SUPERCREAM 0.870% 15 GM JAR EXT PRN (12:12)
[2019-03-22] MEDS: OXYTOCIN 20 UNITS in LACTATED RINGER'S 1,000 ML IV SCH ×2 (14:22→22:08)
[2019-03-22] MEDS: SIMETHICONE 80 MG CHEW PO SCH ×2 (17:08→20:32)
[2019-03-22] MEDS: KETOROLAC 30 MG/ML VIAL IV PRN (18:53)
[2019-03-22] MEDS: DOCUSATE SODIUM 100 MG CAP PO SCH (20:32)
[2019-03-23] MEDS: KETOROLAC 30 MG/ML VIAL IV PRN ×3 (02:31→15:24)
[2019-03-23] MEDS ORDERED: PROMETHAZINE HCL 25 MG in SODIUM CHLORIDE 0.9% 50 ML IV PRN (02:45)
[2019-03-23] MEDS ORDERED: ONDANSETRON INJ 2 MG/ML 2 ML VIAL IV PRN (02:45)
[2019-03-23] MEDS ORDERED: ZOLPIDEM TARTRATE 5 MG TAB PO PRN (02:45)
[2019-03-23] MEDS ORDERED: DiphenhydrAMINE HCL 50 MG/ML VIAL IV PRN (02:45)
[2019-03-23] MEDS ORDERED: MEPERIDINE HCL 50 MG/ML CARP IV PRN (02:45)
[2019-03-23 06:40] LABS: Basophils # (auto) 0.01 K/uL (0-0.2); Basophils % (auto) 0.1 %; Eosinophils # (auto) 0.04 K/uL (0-0.5); Eosinophils % (auto) 0.4 %; Hematocrit (blood only) 28.1 % (37-47); Hemoglobin 9.4 g/dL (12.0-16.0); Immature Granulocytes # (auto) 0.03 K/uL (0.00-0.02); Immature Granulocytes % (auto) 0.3 %; Lymphocytes # (auto) 1.75 K/uL (1.2-3.4); Lymphocytes % (auto) 18.3 %; Mean Corpuscular Hgb Conc 33.5 g/dL (32-36); Mean Corpuscular Volume 82.4 fL (80-100); Mean Platelet Volume 10.7 fL (7.4-10.4); Monocytes # (auto) 0.56 K/uL (0.11-0.59); Monocytes % (auto) 5.9 %; Neutrophils # (auto) 7.17 K/uL (1.4-6.5); Platelet Count 183 K/uL (130-400); RDW Coefficient of Variation 13.6 % (11.5-14.5); RDW Standard Deviation 41.3 fL (36.4-46.3); Red Blood Count 3.41 M/uL (4.2-5.4); White Blood Count 9.56 K/uL (4.8-10.8)
--- NOTE | 2019-03-23 06:59 | Obstetrical Progress Note ---
Date of Service March 23, 2019 Assessment & Plan (1) Status post repeat low transverse section: doing well. will await spont void. advance diet. cbc this am. routine care. Subjective Ambulation: ambulating normally Passing Gas:: Yes Diet Tolerance:: clear liquids Lochia:: Small Feeding Type:: bottle feeding doing well. no pain issues. getting to eat regular food this am. justice out and void pending. Physical Exam Vital Signs (Past 24 Hours) Last Vital Signs Temp 98.6 F 03/23/19 03:20 Pulse 56 L 03/23/19 03:20 Resp 18 03/23/19 03:20 BP 99/66 L 03/23/19 03:20 Pulse Ox 97 03/23/19 03:20 Constitutional WD/WN, vitals as above Respiratory normal respiratory effort, lungs clear to auscultation Cardiovascular Rate/Rhythm: regular rate and regular rhythm Gastrointestinal (Abdomen) ff 2 down, incision c/d/i with steris Musculoskeletal nt calves. Neurologic grossly normal
[2019-03-23] MEDS: DOCUSATE SODIUM 100 MG CAP PO SCH ×2 (08:58→20:36)
[2019-03-23] MEDS: SIMETHICONE 80 MG CHEW PO SCH ×4 (08:59→20:36)
[2019-03-23] MEDS ORDERED: DIPHTHERIA/TETANUS/PERTUSSIS 0.5 ML SYR/VIAL IM ONE (09:00)
[2019-03-23] MEDS: PRENATAL VITAMIN 1 TAB PO SCH (09:00)
[2019-03-23] MEDS: FERROUS SULFATE 325 MG TAB PO SCH (09:02)
--- NOTE | 2019-03-23 09:27 | Anesthesiology Progress Note ---
Date of Service March 23, 2019 Patient is s/p SAB for Csection on 03/22/19.Pt has no c/o H/A.LBP or LE weakness or paresthesias.Pt has been up and ambulating. Physical Exam Vital Signs: Last Vital Signs Temp 36.9 C 03/23/19 07:30 Pulse 74 03/23/19 07:30 Resp 20 03/23/19 07:30 BP 102/68 03/23/19 07:30 Pulse Ox 97 03/23/19 03:20 Results & Data Medications Administered Docusate Sodium (Colace) 100 mg PO BID [facility] Stop: 04/21/19 12:11 Last Admin: 03/23/19 08:58 Dose: 100 mg Documented by: [id number] Admin: 03/22/19 20:32 Dose: Not Given Documented by: [id number] Ferrous Sulfate (Feosol) 325 mg PO QAM [facility] Stop: 04/21/19 12:11 Last Admin: 03/23/19 09:02 Dose: Not Given Documented by: [id number] Lactated Ringer's (Lr) 1,000 mls @ 125 mls/hr IV .Q8H [facility] Stop: 04/21/19 06:48 Last Admin: 03/22/19 07:01 Dose: 125 mls/hr Documented by: [id number] Ketorolac Tromethamine (Toradol) 30 mg IV Q6H PRN PRN Reason: Pain Stop: 03/28/19 02:44 Last Admin: 03/23/19 09:05 Dose: 30 mg Documented by: [id number] Prenat Multivit/Lead Process Engineer/Iron/Folic Ac ( Vitamin) 1 tab PO QAM [facility] Stop: 04/21/19 12:11 Last Admin: 03/23/19 09:00 Dose: 1 tab Documented by: [id number] Simethicone (Mylicon) 80 mg PO QID [facility] Stop: 04/21/19 12:11 Last Admin: 03/23/19 08:59 Dose: 80 mg Documented by: [id number] Admin: 03/22/19 20:32 Dose: Not Given Documented by: [id number] Admin: 03/22/19 17:08 Dose: Not Given Documented by: [id number]
[2019-03-23] MEDS: OXYCODONE/ACETAMINOPHEN 5mg/325mg TAB PO PRN ×2 (19:26→23:19)
[2019-03-23] MEDS ORDERED: BISACODYL 5 MG TABEC PO SCH (20:00)
[2019-03-23] MEDS: IBUPROFEN 600 MG TAB PO PRN (23:19)
[2019-03-24] MEDS: IBUPROFEN 600 MG TAB PO PRN ×3 (03:16→12:15)
[2019-03-24] MEDS: OXYCODONE/ACETAMINOPHEN 5mg/325mg TAB PO PRN ×3 (03:17→12:16)
[2019-03-24 06:41] LABS: Hematocrit (blood only) 24.7 % (37-47); Hemoglobin 8.1 g/dL (12.0-16.0)
[2019-03-24] MEDS: DOCUSATE SODIUM 100 MG CAP PO SCH ×2 (08:01→08:08)
[2019-03-24] MEDS: PRENATAL VITAMIN 1 TAB PO SCH ×2 (08:02→08:09)
[2019-03-24] MEDS: SIMETHICONE 80 MG CHEW PO SCH ×2 (08:04→12:16)
[2019-03-24] MEDS: FERROUS SULFATE 325 MG TAB PO SCH (08:30)
[2019-03-24] MEDS ORDERED: BISACODYL 10 MG SUPP PR PRN (08:55)
--- NOTE | 2019-03-24 09:58 | Obstetrical Progress Note ---
Date of Service March 24, 2019 Assessment & Plan (1) Status post repeat low transverse section: doing well. will await spont void. advance diet. cbc this am. routine care. Stable for discharge Subjective Ambulation: ambulating normally Voiding: no voiding problems Diet Tolerance:: regular diet Lochia:: Moderate Feeding Type:: breast feeding Physical Exam Vital Signs (Past 24 Hours) Last Vital Signs Temp 97.5 F L 03/23/19 23:20 Pulse 74 03/23/19 23:20 Resp 16 03/23/19 23:20 BP 104/68 03/23/19 23:20 Pulse Ox 99 03/23/19 19:30 Genitourinary OB Exam Abdomen: + fundal height Fundus: + firm and + relation to umbilicus (Below); not tender and not boggy
--- NOTE | 2019-03-25 13:25 | Discharge Summary ---
Date of Service March 25, 2019 Patinent had March 22, met criteria for discharge March 24 (POD#2) Was ambulating, tolerating oral diet pain was well controlled with oral pain medication patient was ambulating well no extremity pain Her hemoglobin was 8.1 but was only 9.8 coming into the patient was not symptomatic Patient met criteria and was discharged home with appropriate pain medication and given iron supplementation she was told to call with any concerns instructions were reviewed Admission Exam (Per Admitting) Constitutional WD/WN, vitals as above Gastrointestinal (Abdomen) Incision was clean dry and intact uterus is firm nontender Musculoskeletal Extremities: extremities normal to inspection Discharge Data Consultations 03/22/19 05:49 Consult Anesthesiology Stat Procedures Performed Operation Date: 03/22/19 07:30 Actual Procedures p Section, repeat, with delivery of live male child at 0815(Not Applicable) - Sofi Hauser MD, FACOG s with Bilateral Tubal Ligation(Bilateral) - Sofi Hauser MD, FACOG Hospital Course (1) Status post repeat low transverse section:
== END 2019-03-24 13:45 | disposition home or self-care (01) | DRG 785 ==
LOC: 4S1 05:46 → EDSTATUS 08:50 → 4S2 16:49
PROC: M.PPTLD (2019-03-22 07:30)